=== PATIENT | female | born 2000 | race African-American/Black ===

== ENCOUNTER 2021-03-15 12:40 | Emergency (ER) | payer MEDICAID ==
[~2021-03-15] VITALS: Ht 167.6 cm; Wt 57.0 kg
[2021-03-15 13:35] VITALS: BP 119/66
[2021-03-15] MEDS ORDERED: ACETAMINOPHEN 325MG TABLET PO ONE (13:45)
[2021-03-15] MEDS ORDERED: TETANUS, DIPHTHERIA, PERTUSSIS VAC/PF 0.5ML (>10YR OLD) IM ONE (13:45)
[2021-03-15] MEDS ORDERED: IBUP-2029 MT (15:41)
[2021-03-15] MEDS ORDERED: TOPUD MT (15:41)
[2021-03-15] MEDS ORDERED: BACITRACIN ZINC OINT UDPKT TOP ONE (16:00)
== END 2021-03-15 16:03 | disposition home or self-care (01) ==
LOC: ER 12:40
DX: S00.81XA Abrasion of other part of head, initial encounter (principal); M79.642 Pain in left hand; M25.532 Pain in left wrist; M25.561 Pain in right knee; Y04.0XXA Assault by unarmed brawl or fight, initial encounter; Y93.89 Activity, other specified; Y92.89 Other specified places as the place of occurrence of the external cause
CPT/HCPCS: 70486; 73110; 73130; 73562; 81025; 90471; 90715; 99284